=== PATIENT | female | born 1980 | race Caucasian/White ===

== ENCOUNTER 2018-03-14 09:28 | Inpatient (IN) | END 2018-08-23 19:20 | disposition home health service (06) | DRG 853 ==

== ENCOUNTER → 2019-03-14 | Outpatient (CLI) | payer OTHER, MEDICAID ==
[~2019-03-14] MED LIST: ACET325S GTB; ACET325T33 PO; DOCU50LI23 GTB; ENOX40DI2 SC; IOHEXOL 300MG/ML 150 ML BTL ONE; KEP100S GTB; LACO10SO2 GTB; METO-429 GTB; MULTI GTB; OMEP20CA16 GTB; SOD CHLORIDE 0.9% 100 ML ONE; TETR15DR63 BOTH EYES
== END | disposition home or self-care (01) ==
LOC: C/S 13:13
PROVIDERS: ATTEND Internal Medicine Hematology & Oncology
DX: C54.1 Malignant neoplasm of endometrium (principal)
CPT/HCPCS: 74177; 84703; Q9967